=== PATIENT | female | born 1985 | race Hispanic/Latino ===

== ENCOUNTER 2018-04-03 00:58 | Emergency (ER) | payer OTHER ==
[2018-04-03] MEDS ORDERED: ASPIRIN 81 MG CHEWABLE TABLET ONE (01:59)
[2018-04-03] MEDS ORDERED: NA CHLORIDE 0.9% 1,000 ML ONE (02:00)
[2018-04-03 02:09] LABS: Absolute Lymphocytes (CBC) 4.4 K/uL (0.7-4.9); Absolute Monocytes 0.9 K/uL (0.1-1.3); Absolute Neutrophil 7.7 K/uL (1.8-8.0); Basophils % 0.2 % (0-1.3); Eosinophils % 1.7 % (0-4.4); Hematocrit 39.8 % (36.0-45.0); Lymphocytes % 33.4 % (15.3-44.8); MCH 28.8 pg (27.0-35.0); MCV 85.6 fL (80-100); MPV 7.6 fL (7.6-11.3); Monocytes % 6.6 % (3.3-12.3); RBC Red Blood Cell Count 4.64 M/uL (3.86-4.86)
[2018-04-03 02:10] LABS: Protime INR 1.09
[2018-04-03 02:34] LABS: Bicarbonate 26 mEq/L (21-31); Glucose Level 120 mg/dL (65-120); Potassium 3.4 mEq/L (3.6-5.0); Sodium Level 138 mEq/L (135-145)
[2018-04-03 02:40] LABS: ALT/SGPT 42 IU/L (10-60); AST/SGOT 28 IU/L (10-42); Albumin 3.8 g/dL (3.2-5.5); Alkaline Phosphatase 63 IU/L (42-121); BUN Blood Urea Nitrogen 16 mg/dL (6-20); Bilirubin Direct < 0.1 mg/dL (0-0.2); Bilirubin Total 0.4 mg/dL (0.3-1.2); Creatine Phosphokinase 162 IU/L (22-269); Magnesium 1.9 mg/dL (1.8-2.5); Protein, Total 7.6 g/dL (6.0-8.3)
[2018-04-03 02:41] LABS: CKMB Creatine Kinase MB 2.6 ng/ml (0.3-4.0)
[2018-04-03] MEDS ORDERED: POTASSIUM 25 MEQ EFFERV TAB ONE (02:51)
--- NOTE | 2018-04-03 05:16 | EDPHYS ---
Physician Documentation [facility] Name: Syeda Mccord Age: 32 yrs Sex: Female : 1985 Arrival Date: 04/03/2018 Time: 00:59 Bed 6 Private MD: Gladys Silverio ED Physician Haresh Metz HPI: 04/03 01:38 This 32 yrs old Female presents to ER via Ambulatory with complaints of Chest amber Pain > 30 y/o, Shortness Of Breath. 01:38 The patient or guardian reports chest pain that is located primarily in the anterior amber chest wall. The pain radiates to the right arm. Associated signs and symptoms: The patient has no apparent associated signs or symptoms. The chest pain is described as a heaviness, a pressure. Duration: The patient or guardian reports multiple episodes, with no pattern. Modifying factors: The symptoms are alleviated by nothing. the symptoms are aggravated by nothing. Severity of pain: At its worst the pain was mild moderate in the emergency department the pain has improved markedly. The patient has not experienced similar symptoms in the past. 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 - Social history:: Smoking status: Patient/guardian denies using tobacco, Patient/guardian denies using alcohol, street drugs. - Ebola Screening: : Patient negative for fever greater than or equal to 101.5 degrees Fahrenheit, and additional compatible Ebola Virus Disease symptoms Patient denies exposure to infectious person Patient denies travel to an Ebola-affected area in the 21 days before illness onset. - Family history:: not pertinent. ROS: 01:38 Constitutional: Negative for fever, chills, and weight loss, Eyes: Negative for injury, amber pain, redness, and discharge, ENT: Negative for injury, pain, and discharge, Neck: Negative for injury, pain, and swelling, Respiratory: Negative for shortness of breath, cough, wheezing, and pleuritic chest pain, Abdomen/GI: Negative for abdominal pain, nausea, vomiting, diarrhea, and constipation, Back: Negative for injury and pain, : Negative for injury, bleeding, discharge, and swelling, MS/Extremity: Negative for injury and deformity, Skin: Negative for injury, rash, and discoloration, Neuro: Negative for headache, weakness, numbness, tingling, and seizure, Psych: Negative for depression, anxiety, suicide ideation, homicidal ideation, and hallucinations, Allergy/Immunology: Negative for hives, rash, and allergies, Endocrine: Negative for neck swelling, polydipsia, polyuria, polyphagia, and marked weight changes, Hematologic/Lymphatic: Negative for swollen nodes, abnormal bleeding, and unusual bruising. 01:38 Cardiovascular: Positive for chest pain, with cough. Exam: 01:38 Constitutional: This is a well developed, well nourished patient who is awake, alert, amber and in no acute distress. Head/Face: Normocephalic, atraumatic. Eyes: Pupils equal round and reactive to light, extra-ocular motions intact. Lids and lashes normal. Conjunctiva and sclera are non-icteric and not injected. Cornea within normal limits. Periorbital areas with no swelling, redness, or edema. ENT: Nares patent. No nasal discharge, no septal abnormalities noted. Tympanic membranes are normal and external auditory canals are clear. Oropharynx with no redness, swelling, or masses, exudates, or evidence of obstruction, uvula midline. Mucous membranes moist. Neck: Trachea midline, no thyromegaly or masses palpated, and no cervical lymphadenopathy. Supple, full range of motion without nuchal rigidity, or vertebral point tenderness. No Meningismus. Chest/axilla: Normal chest wall appearance and motion. Nontender with no deformity. No lesions are appreciated. Cardiovascular: Regular rate and rhythm with a normal S1 and S2. No gallops, murmurs, or rubs. Normal PMI, no JVD. No pulse deficits. Respiratory: Lungs have equal breath sounds bilaterally, clear to auscultation and percussion. No rales, rhonchi or wheezes noted. No increased work of breathing, no retractions or nasal flaring. Abdomen/GI: Soft, non-tender, with normal bowel sounds. No distension or tympany. No guarding or rebound. No evidence of tenderness throughout. Back: No spinal tenderness. No costovertebral tenderness. Full range of motion. Female : Normal external genitalia. Skin: Warm, dry with normal turgor. Normal color with no rashes, no lesions, and no evidence of cellulitis. MS/ Extremity: Pulses equal, no cyanosis. Neurovascular intact. Full, normal range of motion. Neuro: Awake and alert, GCS 15, oriented to person, place, time, and situation. Cranial nerves II-XII grossly intact. Motor strength 5/5 in all extremities. Sensory grossly intact. Cerebellar exam normal. Normal gait. Psych: Awake, alert, with orientation to person, place and time. Behavior, mood, and affect are within normal limits. 01:38 Musculoskeletal/extremity: DVT Exam: No signs of deep vein thrombosis. no pain, no swelling, no tenderness, negative Homans' sign noted on exam, no appreciated bluish discoloration, no erythema, no increased warmth. Vital Signs: 01:15 BP 143 / 89; Pulse 117; Resp 18; Temp 98.5; Pulse Ox 95% on R/A; Weight 139.25 kg (R); ao Height 5 ft. 6 in. (167.64 cm) (R); Pain 7/10; 02:00 BP 146 / 74; Pulse 95; Resp 18; Pulse Ox 98% ; rk2 03:00 BP 137 / 64; Pulse 79; Resp 18; Pulse Ox 97% on R/A; rk2 06:45 BP 138 / 89; Pulse 4; Resp 16; Pulse Ox 100% on R/A; Pain 0/10; ao 01:15 Body Mass Index 49.55 (139.25 kg, 167.64 cm) ao MDM: 01:13 Patient medically screened. [facility] 01:41 Data reviewed: vital signs, nurses notes, lab test result(s), EKG, radiologic studies, [facility] CT scan, plain films. 04/03 01:17 Order name: Basic Metabolic Panel; Complete Time: 03:34 [facility] 04/03 01:17 Order name: BNP; Complete Time: 03:34 2 04/03 01:17 Order name: CBC with Diff; Complete Time: 02:39 2 04/03 01:17 Order name: Ckmb; Complete Time: 03:34 2 04/03 01:17 Order name: CPK; Complete Time: 03:34 rk2 04/03 01:17 Order name: LFT's; Complete Time: 03:34 [facility] 04/03 01:17 Order name: Magnesium; Complete Time: 03:34 [facility] 04/03 01:17 Order name: PT-INR; Complete Time: 02:39 [facility] 04/03 01:17 Order name: Ptt, Activated; Complete Time: 02:39 [facility] 04/03 01:17 Order name: Troponin (emerg Dept Use Only); Complete Time: 02:39 [facility] 04/03 01:34 Order name: Lipase; Complete Time: 02:39 [facility] 04/03 01:38 Order name: Urine Culture [facility] 04/03 01:39 Order name: Urine Culture EDSD 04/03 01:44 Order name: Urine --Ancillary (enter results); Complete Time: 06:23 [facility] 04/03 01:17 Order name: XRAY Chest (1 view) [facility] 04/03 01:17 Order name: EKG; Complete Time: 01:17 [facility] 04/03 01:17 Order name: Cardiac monitoring; Complete Time: 01: 04/03 01:17 Order name: EKG - Nurse/Tech; Complete Time: 01: 04/03 01:17 Order name: IV Saline Lock; Complete Time: : [facility] 04/03 01:17 Order name: Labs collected and sent; Complete Time: : 04/03 01:17 Order name: O2 Per Protocol; Complete Time: 01: 04/03 01:17 Order name: O2 Sat Monitoring; Complete Time: 01: [facility] 04/03 01:36 Order name: CT Chest For PE Angio [facility] 04/03 01:44 Order name: Urine Dipstick--Ancillary (enter results); Complete Time: 06:23 [facility] 04/03 03:36 Order name: Ckmb; Complete Time: 06:25 [facility] 04/03 03:36 Order name: Creatine Phosphokinase; Complete Time: 06:25 [facility] 04/03 03:36 Order name: Troponin (emerg Dept Use Only); Complete Time: 06:23 [facility] 04/03 01:17 Order name: Urine Dipstick-Ancillary (obtain specimen); Complete Time: : 04/03 01:36 Order name: Urine Test (obtain specimen); Complete Time: 02:05 [facility] 04/03 03:36 Order name: Repeat Cardiac Enzymes at: 400am; Complete Time: 05:00 [facility] Administered Medications: 02:05 Drug: NS 0.9% 1000 ml Route: IV; Rate: 1 bolus; Site: right antecubital; rk2 03:14 Follow up: Response: No adverse reaction; IV Status: Completed infusion rk2 02:07 Drug: Aspirin Chewable Tablet 162 mg Route: PO; rk2 03:14 Follow up: Response: No adverse reaction rk2 02:52 Drug: Potassium Effervescent Tablet 25 mEq Route: PO; rk2 03:13 Follow up: Response: No adverse reaction rk2 Disposition: 04/03/18 05:15 Discharged to Home. Impression: Chest pain, unspecified, Hypokalemia, Elevated white blood cell count, Obesity, unspecified, Dyspnea. - Condition is Stable. - Discharge Instructions: Nonspecific Chest Pain, Chest Wall Pain, Potassium Content of Foods, Hypertension, Obesity, Chest Wall Pain, [id number], Nonspecific Chest Pain, Lsec-[id number], Hypertension, Sqyv-yl-Oaiq, Aspirin and Your Heart, Obesity, Wdeq-xh-Qcgl. - Medication Reconciliation Form, Thank You Letter, Antibiotic Education, Prescription Opioid Use form. - Follow up: Gladys Silverio; When: 2 - 3 days; Reason: Recheck today's complaints, Continuance of care, Re-evaluation by your physician. - Problem is new. - Symptoms have improved. Signatures: Dispatcher [employer] EDSD Haresh Metz MD MD cha Ortiz, Alex RN RN Tiffany Paulino RN RN rk2 Corrections: (The following items were deleted from the chart) 06:49 05:15 04/03/2018 05:15 Discharged to Home. Impression: Chest pain, unspecified; ao Hypokalemia; Elevated white blood cell count; Obesity, unspecified; Dyspnea. Condition is Stable. Discharge Instructions: Nonspecific Chest Pain, Chest Wall Pain, Potassium Content of Foods, Hypertension, Obesity, Chest Wall Pain, Vowe-hc-[id number], Nonspecific Chest Pain, Gdjn-rr-Folr, Hypertension, Xtsm-nj-Mami, Aspirin and Your Heart, Obesity, Hxvl-kj-Ycay. Forms are Medication Reconciliation Form, Thank You Letter, Antibiotic Education, Prescription Opioid Use. Follow up: Gladys Silverio; When: 2 - 3 days; Reason: Recheck today's complaints, Continuance of care, Re-evaluation by your physician. Problem is new. Symptoms have improved. amber
--- NOTE | 2018-04-03 05:16 | ER ---
Nurse's Notes [facility] Name: Syeda Mccord Age: 32 yrs Sex: Female : 1985 Arrival Date: 04/03/2018 Time: 00:59 Bed 6 Private MD: Gladys Silverio Diagnosis: Chest pain, unspecified;Hypokalemia;Elevated white blood cell count;Obesity, unspecified;Dyspnea Presentation: 04/03 01:14 Presenting complaint: Patient states: "I had chest pain radiating to the right arm with ao SOB and weakness." Patient also complains of left leg cramping and weakness. Transition of care: patient was not received from another setting of care. Onset of symptoms is unknown. Risk Assessment: Do you want to hurt yourself or someone else? Patient reports no desire to harm self or others. Initial Sepsis Screen: Does the patient meet any 2 criteria? HR > 90 bpm. No. Patient's initial sepsis screen is negative. Does the patient have a suspected source of infection? No. Patient's initial sepsis screen is negative. Care prior to arrival: None. 01:14 Method Of Arrival: Ambulatory ao 01:14 Acuity: REHAN 3 ao Triage Assessment: 01:18 General: Appears in no apparent distress. uncomfortable, Behavior is calm, cooperative, ao appropriate for age. Pain: Complains of pain in chest. Cardiovascular: Reports chest pain, shortness of breath, since Few days ago. 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 - Social history:: Smoking status: Patient/guardian denies using tobacco, Patient/guardian denies using alcohol, street drugs. - Ebola Screening: : Patient negative for fever greater than or equal to 101.5 degrees Fahrenheit, and additional compatible Ebola Virus Disease symptoms Patient denies exposure to infectious person Patient denies travel to an Ebola-affected area in the 21 days before illness onset. - Family history:: not pertinent. Screenin:18 Abuse screen: Denies threats or abuse. Denies injuries from another. Nutritional ao screening: No deficits noted. Tuberculosis screening: No symptoms or risk factors identified. Fall Risk None identified. Assessment: 01:50 General: Appears in no apparent distress. well groomed, well developed, well nourished, rk2 Behavior is calm, cooperative. Pain: Pain radiates to arm Pain began gradually. 01:50 Neuro: Level of Consciousness is alert, obeys commands, Oriented to person, place, rk2 time, situation. Cardiovascular: No deficits noted. Rhythm is sinus rhythm. Respiratory: Airway is patent Respiratory effort is even, unlabored, Respiratory pattern is regular, symmetrical. Derm: Skin is pink, warm \\T\\ dry. 03:17 Reassessment: Patient appears in no apparent distress at this time. No changes from rk2 previously documented assessment. Patient and/or family updated on plan of care and expected duration. Pain level reassessed. Patient is alert, oriented x 3, equal unlabored respirations, skin warm/dry/pink. Pt. ambulated to restroom on her own. 03:50 Reassessment: No changes from previously documented assessment. Patient and/or family fc updated on plan of care and expected duration. Pain level reassessed. Patient is alert, oriented x 3, equal unlabored respirations, skin warm/dry/pink. Pt is on her way to CT Scan via W/C. Vital Signs: 01:15 BP 143 / 89; Pulse 117; Resp 18; Temp 98.5; Pulse Ox 95% on R/A; Weight 139.25 kg (R); ao Height 5 ft. 6 in. (167.64 cm) (R); Pain 7/10; 02:00 BP 146 / 74; Pulse 95; Resp 18; Pulse Ox 98% ; rk2 03:00 BP 137 / 64; Pulse 79; Resp 18; Pulse Ox 97% on R/A; rk2 06:45 BP 138 / 89; Pulse 4; Resp 16; Pulse Ox 100% on R/A; Pain 0/10; ao 01:15 Body Mass Index 49.55 (139.25 kg, 167.64 cm) ao ED Course: 00:59 Patient arrived in ED. am2 01:00 Gladys Silverio MD is Private Physician. am2 01:13 Tiffany Fay, JIM is Primary Nurse. rk2 01:13 Haresh Metz MD is Attending Physician. amber 01:15 Triage completed. ao 01:17 Arm band placed on right wrist. Patient placed in an exam room, on a stretcher, on ao oxygen, on multimedia specialist, on pulse oximetry. 01:19 Patient has correct armband on for positive identification. 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 Pulse ao ox on. NIBP on. 01:55 X-ray completed. Portable x-ray completed in exam room. Patient tolerated procedure kw well. 01:57 XRAY Chest (1 view) In Process Unspecified. EDMS 02:23 Patient maintains SpO2 saturation greater than 95% on room air. rk2 03:[address] via wheelchair. kw1 04:02 No provider procedures requiring assistance completed. fc 04:11 CT completed. Patient tolerated procedure well. Patient moved back from CT. kw1 04:12 CT Chest For PE Angio In Process Unspecified. EDMS 05:14 Gladys Silverio MD is Referral Physician. amber 06:48 IV discontinued, intact, bleeding controlled, No redness/swelling at site. Pressure ao dressing applied. Administered Medications: 02:05 Drug: NS 0.9% 1000 ml Route: IV; Rate: 1 bolus; Site: right antecubital; rk2 03:14 Follow up: Response: No adverse reaction; IV Status: Completed infusion rk2 02:07 Drug: Aspirin Chewable Tablet 162 mg Route: PO; rk2 03:14 Follow up: Response: No adverse reaction rk2 02:52 Drug: Potassium Effervescent Tablet 25 mEq Route: PO; rk2 03:13 Follow up: Response: No adverse reaction rk2 Outcome: 05:15 Discharge ordered by . amber 06:46 Discharged to home ambulatory. ao 06:46 Condition: stable 06:46 Discharge instructions given to patient, Instructed on discharge instructions, Demonstrated understanding of instructions, follow-up care, medications. 06:49 Patient left the ED. ao Signatures: Dispatcher [employer] EDWI Haresh Metz MD MD cha Chretien, Felicia, RN RN fc Whitley, Kimberlee kw Ortiz, Alex, RN RN ao Moreno, Amanda am2 Gail Frost kw1 Tiffany Fay RN RN rk2
[2018-04-03 06:10] LABS: Urine Blood 1+ (NEG); Urine Glucose NEGATIVE (NEG); Urine Protein TRACE (NEG); Urine pH 5.5 (5.0-7.0)
[2018-04-03 06:23] LABS: CKMB Creatine Kinase MB 2.8 ng/ml (0.3-4.0)
--- NOTE | 2018-04-03 08:25 | EKG ---
Test Date: 2018-04-03 Test Time: 01:21:07 Lab Nurse: ERON MEASUREMENT RESULTS: Intervals: Rate: 101 WV: 132 QRSD: 80 QT: 344 QTc: 446 [place]: P: 61 WV: 132 QRS: 15 T: 26 INTERPRETIVE STATEMENTS: Sinus tachycardia Otherwise normal ECG Compared to ECG 03/02/2016 22:44:31 Sinus rhythm no longer present Left ventricular hypertrophy no longer present Electronically Signed On 04-03-18 08:24:27 CDT by Luis Lua
--- NOTE | 2018-04-03 09:46 | RAD REPORT ---
EXAM DESCRIPTION: RAD - Chest Single View - 04/03/2018 1:56 am CLINICAL HISTORY: Chest pain. COMPARISON: 03/02/2016 FINDINGS: Portable technique limits examination quality. The lungs are grossly clear. The heart is normal in size. No displaced fractures. IMPRESSION: No acute intrathoracic process suspected.
--- NOTE | 2018-04-03 10:07 | RAD REPORT ---
EXAM DESCRIPTION: CT - Chest For Pe Angio - 04/03/2018 7:16 am CLINICAL HISTORY: Chest pain. CHEST PAIN COMPARISON: CTANGIO CHEST FOR PE dated 12/08/2015 TECHNIQUE: CT angiogram of the pulmonary arteries was performed with MIP. All CT scans are performed using dose optimization technique as appropriate and may include automated exposure control or mA/KV adjustment according to patient size. FINDINGS: No evidence of pulmonary thromboembolism. No acute aortic finding demonstrated. The lungs are clear. No significant pericardial or pleural fluid. No concerning bony finding. Fatty liver noted. IMPRESSION: No evidence of pulmonary thromboembolism. No acute lung findings.
== END 2018-04-03 06:49 | disposition home or self-care (01) ==
LOC: ER 00:58
DX: E87.6 Hypokalemia (principal); D72.829 Elevated white blood cell count, unspecified; R06.00 Dyspnea, unspecified; E66.9 Obesity, unspecified
CPT/HCPCS: 36415; 71045; 71275; 80048; 80076; 81003; 81025; 82550; 82553; 83690; 83735; 83880; 84484; 85025; 85610; 85730; 87086; 87088; 93005; 96360; 99285; J7030; Q9967